=== PATIENT | male | born 1945 | race Caucasian/White ===

== ENCOUNTER 2023-12-27 10:38 | Outpatient (RCR) | payer MEDICARE, OTHER, SELFPAY ==
--- NOTE | 2024-01-10 09:25 | ONC.NURNOTE ---
Dx: Malignant neoplasm of left ureter
== END 2024-06-24 23:59 | disposition home or self-care (01) ==
LOC: CCIC 10:38
PROVIDERS: Visit Provider Internal Medicine
DX: C66.2 Malignant neoplasm of left ureter (principal)
CPT/HCPCS: 99211